=== PATIENT | male | born 1985 | race Caucasian/White ===

== ENCOUNTER 2021-06-21 10:31 | Emergency (ER) | payer OTHER, SELFPAY ==
[2021-06-21 10:43] VITALS: BP 153/97; PULSE 107; RESP 20; TEMP 36.2; O2SAT 97
--- NOTE | 2021-06-21 10:52 | ED.WOUNDLAC ---
HPI - Wound/Laceration General Chief Complaint: Wound/Laceration Stated Complaint: fish hook in R lower leg Source: patient History of Present Illness HPI narrative: patient presents with a fishhook to his right mid calf area occurred earlier today is up-to-date with his tetanus it is tender with no fever chills no swelling no erythema. Onset (ago): hour(s) Related Data Home Medications Medication Instructions Recorded Confirmed No Home Medications 06/21/21 06/21/21 Allergies Allergy/AdvReac Type Severity Reaction Status Date / Time amoxicillin Allergy Unknown Verified 06/21/21 10:54 clavulanic acid Allergy Unknown Verified 06/21/21 10:54 [From Augmentin] Review of Systems Review of Systems: All systems reviewed & are unremarkable except as noted in HPI and below PMFSH Past Medical History Medical History Patient denies medical problems Exam Const: General: no acute distress and alert Orientation/consciousness: patient oriented x3 HENMT: Head: normal to inspection Eyes: Conjunctivae: conjunctivae normal Pupils: Equal, round and reactive pupils present Neck: Neck: normal visual inspection Chest: Chest palpation & inspection: normal inspection of the chest Resp: Effort & Inspection: normal respiratory effort Cardio: Rate: regular rate Rhythm: regular rhythm GI: GI Palp: Yes Soft to palpation Percussion: Yes normal to percussion Skin: General skin exam: normal color Other: fishhook imbedded into the mid right calf Neuro: General: patient oriented x3 and moves all extremities Extrem: General: normal to inspection Psych: Mental Status: mental status grossly normal Affect: normal affect Course Course Emergency Course: fishhook removed 1% lidocaine was used to numb the area and a fishhook was pushed through and removed. Critical Care Time Critical Care Time Critical Care Time: No Discharge Plan Discharge Clinical Impression: Fish hook in calf Patient Disposition: Home, Self-Care Condition: Stable Instructions: Antibiotic Form, Soft Tissue Foreign Body (ED) Additional Instructions: can use Tylenol or Motrin for pain or discomfort and follow with primary care physician if symptoms of erythema or draining of the wound site. Prescriptions: No Action No Home Medications RF: 0 Follow-up/Referrals: Collin Cuba MD [Primary Care Provider] - Time of Disposition: 10:56
== END 2021-06-21 11:01 | disposition home or self-care (01) ==
PROVIDERS: Emergency Provider Emergency Medicine; PCP Family Medicine
DX: S81.831A Puncture wound without foreign body, right lower leg, initial encounter (principal); W45.8XXA Other foreign body or object entering through skin, initial encounter
CPT/HCPCS: 99282